=== PATIENT | male | born 1960 | race Caucasian/White ===

== ENCOUNTER → 2016-12-14 | Outpatient (CLI) | payer OTHER ==
[~2016-12-14] MED LIST: ATOR10TA82 PO; CIPR-255 PO; HYDR-5688 PO
[2016-12-14 16:28] LABS: LYME DISEASE AB IGG NEG (NEG)
[2016-12-14 16:29] LABS: LYME DISEASE AB IGM NEG (NEG)
== END | disposition home or self-care (01) ==
LOC: C.LAB1850 11:06
PROVIDERS: ATTEND Physician Assistant
DX: T14.8 Other injury of unspecified body region (principal); W57.XXXA Bitten or stung by nonvenomous insect and other nonvenomous arthropods, initial encounter

== ENCOUNTER 2020-06-27 01:52 | Observation (INO) ==
[2020-06-27] MEDS ORDERED: ONDANSETRON INJ 2 MG/ML 2 ML VIAL IV STA (02:11)
[2020-06-27] MEDS ORDERED: HYDROmorphone INJ 1 MG/ML SYRINGE IV STA (02:11)
[2020-06-27] MEDS ORDERED: KETOROLAC TROMETHAMINE 15 MG/ML VIAL IV STA (02:11)
[2020-06-27] MEDS ORDERED: SODIUM CHLORIDE 0.9% 1000ML 1,000 ML IV SCH ×2 (02:15→04:11)
[2020-06-27 02:36] LABS: Basophils # (auto) 0.01 K/uL (0-0.2); Basophils % (auto) 0.1 %; Eosinophils # (auto) 0.04 K/uL (0-0.5); Eosinophils % (auto) 0.4 %; Hematocrit (blood only) 41.8 % (42-52); Hemoglobin 14.5 g/dL (14.0-18.0); Immature Granulocytes # (auto) 0.01 K/uL (0.00-0.02); Immature Granulocytes % (auto) 0.1 %; Lymphocytes # (auto) 0.53 K/uL (1.2-3.4); Lymphocytes % (auto) 5.7 %; Mean Corpuscular Hemoglobin 30.8 pg (25-34); Mean Corpuscular Hgb Conc 34.7 g/dL (32-36); Mean Corpuscular Volume 88.7 fL (80-100); Mean Platelet Volume 10.9 fL (7.4-10.4); Monocytes # (auto) 0.82 K/uL (0.11-0.59); Monocytes % (auto) 8.8 %; Neutrophils # (auto) 7.91 K/uL (1.4-6.5); Neutrophils % (auto) 84.9 %; Platelet Count 136 K/uL (130-400); RDW Coefficient of Variation 12.4 % (11.5-14.5); RDW Standard Deviation 39.9 fL (36.4-46.3); Red Blood Count 4.71 M/uL (4.7-6.1); White Blood Count 9.32 K/uL (4.8-10.8)
[2020-06-27 02:54] LABS: Albumin Level 3.7 gm/dl (3.4-5.0); BUN Creatinine Ratio 17.6 (10-20); Calcium 8.7 mg/dl (8.5-10.1); Creatinine Clr Calc Pharmacy 63.5 ml/min; Est GFR (African American) 65.8; Est GFR (Non-African American) 56.8
[2020-06-27 02:57] LABS: Albumin Globulin Ratio 1.2 (0.9-2); Bilirubin,Total 0.8 mg/dl (0.2-1); Globulin 3.1 gm/dl (2.5-4.0); Total Protein 6.8 gm/dl (6.4-8.2)
--- NOTE | 2020-06-27 03:00 | History & Physical Report ---
Date of Service June 27, 2020 Assessment & Plan (1) Hydronephrosis of left kidney: Hydronephrosis of left kidney/calculus of distal left ureter- Readmit patient due to intolerable pain. NPO except meds Tamsulosin 0.4 mg p.o. at bedtime NSS at 80 mils per hour Acetaminophen 650 mg p.o. every 6 hours as needed mild pain or temperature Acetaminophen-codeine 1 p.o. 3 times daily as needed moderate pain Dilaudid 0.5 mg IV every 3 hours as needed for severe pain Follow urine culture and sensitivity Ceftriaxone 1 g IV daily Zofran 4 mg IV every 6 hours as needed Famotidine 20 mg IV every 12 hours Reconsult urology Present on Admission?: Yes (2) Calculus of distal left ureter: See above Present on Admission?: Yes (3) Pure hypercholesterolemia: Hold atorvastatin Present on Admission?: Yes History of Present Illness Chief Complaint: Patient presents to the emergency department with intolerable left flank and left lower quadrant pain after being discharged from the hospital earlier in the day today. Primary Care Provider: Radha Amaya MD The patient is a 59-year-old male with a past medical history including pure hypercholesterolemia, previous kidney stones, and was just admitted on 06/26/2020 with a distal left ureteral calculus and moderate left hydronephrosis. He was given the option of surgical intervention versus a trial of passage, and he chose a trial of passage at home, and was discharged on 06/26/2020. Patient reports that when he went home, the pain was initially acceptable, and then became intolerable, and represents to the ED this evening for reassessment. Allergies Allergy/AdvReac Type Severity Reaction Status Date / Time No Known Allergies Allergy Verified 06/27/20 02:38 Home Medications Home Medications Medication Instructions Recorded Confirmed Type naproxen sodium 220 mg capsule 220 mg PO BID PRN 04/03/20 06/27/20 History atorvastatin 10 mg tablet 10 mg PO DAILY #90 tab 05/12/20 06/27/20 Rx acetaminophen-codeine 1 tab PO TID PRN #14 tab 06/26/20 06/27/20 Rx tamsulosin 0.4 mg PO HS #14 cap 06/26/20 06/27/20 Rx Past Med/Surg History Medical History (Updated 10/16/20 @ 00:08 by Xiomara Santiago MD) Health care maintenance Kidney stone (02/23/13) Pure hypercholesterolemia (02/21/13) Surgical History History of lithotripsy Family History Father Coronary heart disease Myocardial infarction Grandfather Diabetes Family/Other ASCVD (arteriosclerotic cardiovascular disease) Mother Colorectal cancer Denies family history of Ovarian cancer Prostate cancer Breast cancer Social History Smoking Status: Never smoker Second Hand Exposure: No; Hx Alcohol Use: Yes Alcohol type: beer Hx Substance Use: No Preferred Language: Azeri Communication Ability: Effective Roll Weigher Required: No Beliefs That Will Affect Care: None marital status: Current Living Situation: Spouse current occupational status: employed Feels Safe at Home: Yes Dental Care, Regularly: Yes Physical Activity Frequency: Daily Seatbelt Use: always Sunscreen Use: No Assistive Devices: None Review of Systems Review of Systems: The patient denies chest pain, palpitations, shortness of breath, dyspnea on exertion, cough, lower extremity swelling, sore throat, fevers, chills, sweats, vomiting, diarrhea , constipation, blood in urine or stool, dysuria, urinary frequency or urgency, lightheadedness, dizziness, headache, memory loss, loss of consciousness, rash, abnormal bruising or bleeding, imbalance, focal or generalized weakness, numbness or tingling in arms or legs, generalized arthralgias or myalgias, neck pain, or night sweats. The review of systems is otherwise negative other than for that already noted above, and at least 10 systems have been reviewed. Physical Exam Physical Exam: The patient is awake, alert and oriented 3, well developed and well nourished, normocephalic and atraumatic, lying in bed and in no acute distress. HEENT--PERRL, EOMI, mucous membranes and oropharynx dry. Neck--supple. No JVD. No bruits. Thyroid normal, trachea midline, no adenopathy. Heart--normal S1 and S2. No murmurs, rubs or gallops. Lungs--clear bilaterally, no respiratory distress, no accessory muscle use. Abdomen--normal bowel sounds and soft. Tender left lower quadrant and left flank. Nondistended. Extremities--no cyanosis or clubbing. No edema. Dermatologic--normal skin turgor, normal color, no abnormal lymph nodes, no rash. Neurologic--cranial nerves II through XII grossly intact. Rheumatologic--normal range of motion. Psychiatric--normal affect. Results & Data Results & Data ([facility]) Vital Signs (Past 12 Hours) Vital Signs Temp Pulse Resp BP Pulse Ox 06/27/20 01:57 98.2 F 83 18 166/90 H 96 Code Status & VTE Plan Code Status Full code VTE Prophylaxis Plan VTE Prophylaxis will be ordered: Yes PG Care Time/CCT Total # of Minutes Spent Total Time Spent with Patient: Total time spent is greater than 50% in coordination of care (as documented) at patient's floor/unit and/or counseling patient: Coding Level of Care Code 38718 OBS Care - Level 3 Diagnoses Hydronephrosis of left kidney N13.30 Calculus of distal left ureter N20.1 Pure hypercholesterolemia E78.00
--- NOTE | 2020-06-27 03:30 | Emergency Department Note ---
History of Present Illness General Chief complaint: Kidney Stone Stated complaint: KIDNEY STONE Source: patient and RN notes reviewed Mode of arrival: ambulatory Limitations: no limitations History of Present Illness Provider complaint: Left flank pain Maximum Pain Intensity: 4 This patient is a 59-year-old male who presents emergency department with complaints of left flank pain. The patient states he was evaluated in the emergency department last night and observed by the hospitalist team for intractable left-sided pain. After receiving the IV Dilaudid, IV Toradol and Flomax, the patient's pain did resolve however on KUB the stone was still present. After discussing the situation with urology, the patient decided he wanted to try and pass the stone which is at the left UVJ. He was discharged with Tylenol 3. He states he has been nauseated most of the day which he attributes to this medication. He does not feel as though he has adequate pain control. Patient denies any fevers or pain with urination. Home Medications Home Medications Medication Instructions Recorded Confirmed Type naproxen sodium 220 mg capsule 220 mg PO BID PRN 04/03/20 06/27/20 History atorvastatin 10 mg tablet 10 mg PO DAILY #90 tab 05/12/20 06/27/20 Rx acetaminophen-codeine 1 tab PO TID PRN #14 tab 06/26/20 06/27/20 Rx tamsulosin 0.4 mg PO HS #14 cap 06/26/20 06/27/20 Rx Allergies Allergy/AdvReac Type Severity Reaction Status Date / Time No Known Allergies Allergy Verified 06/27/20 02:38 Past Med/Surg History Medical History Health care maintenance Kidney stone (02/23/13) Pure hypercholesterolemia (02/21/13) Surgical History History of lithotripsy Family History Father Coronary heart disease Myocardial infarction Grandfather Diabetes Family/Other ASCVD (arteriosclerotic cardiovascular disease) Mother Colorectal cancer Denies family history of Ovarian cancer Prostate cancer Breast cancer Social History Smoking Status: Never smoker Second Hand Exposure: No; Hx Alcohol Use: Yes Alcohol type: beer Hx Substance Use: No Preferred Language: Lithuanian Communication Ability: Effective Perfect Binder Operator Required: No Beliefs That Will Affect Care: None marital status: Current Living Situation: Spouse Current Living Situation Comment: current occupational status: employed Feels Safe at Home: Yes Dental Care, Regularly: Yes Physical Activity Frequency: Daily Seatbelt Use: always Sunscreen Use: No Assistive Devices: None Review of Systems See HPI for pertinent positives & negatives. and A total of 10 systems reviewed and were otherwise negative Physical Exam Vital Signs Vital Signs - 24 hr 06/27/20 01:57 Temperature 36.8 C Temperature Source Oral Pulse Rate 83 Respiratory Rate 18 Respiratory Depth Normal Blood Pressure 166/90 H Blood Pressure Mean 115 Pulse Oximetry 96 Oxygen Delivery Method Room Air Sepsis Recent Fever Within 48 Hours No Sepsis New/Unexplained Change in Mental Status N/A Sepsis Action Taken by Nursing No Action Required Vital signs reviewed. General: Well-appearing 59 yo male, in no significant distress. HEENT: No scleral icterus, PERRLA, neck supple. Cardiovascular: Regular rate and rhythm, no extra sounds. Pulmonary: Clear to auscultation bilaterally, normal work of breathing. Abdomen: Soft, mild left abdominal discomfort to palpation, nondistended, positive bowel sounds. Musculoskeletal: Atraumatic, no peripheral edema. Mild to moderate left CVA tenderness Neurologic: Patient awake alert and oriented x 3 Skin: Warm, dry, no rash Course Administered Medications Discontinued Medications Hydromorphone HCl (Hydromorphone Inj 1 Mg/Ml Syringe) 1 mg IV NOW STA Stop: 06/27/20 02:12 Last Admin: 06/27/20 02:30 Dose: 1 mg Documented by: [id number] Sodium Chloride (Nss 1000ml) 1,000 mls @ 999 mls/hr IV .Q1H1M ALEXIS Stop: 06/27/20 03:15 Last Infusion: 06/27/20 03:46 Dose: 0 mls/hr Documented by: [id number] Admin: 06/27/20 02:29 Dose: 999 mls/hr Documented by: [id number] Ketorolac Tromethamine (Ketorolac Tromethamine 15 Mg/Ml Vial) 15 mg IV NOW STA Stop: 06/27/20 02:12 Last Admin: 06/27/20 02:30 Dose: 15 mg Documented by: [id number] Ondansetron HCl (Ondansetron Inj 2 Mg/Ml 2 Ml Vial) 4 mg IV NOW STA Stop: 06/27/20 02:12 Last Admin: 06/27/20 02:30 Dose: 4 mg Documented by: [id number] Medical Decision Making Differential Diagnosis DDx: Renal colic, UTI, appendicitis, diverticulitis, mesenteric ischemia, aortic pathology, infections, inflammatory bowel disease, PUD, biliary pathology, as well as other pathologies. Medical Records Attestation: I reviewed the patient's medical records. Home Medications Current Medication List: was personally reviewed by me Laboratory Data Attestation: I reviewed the patient's lab results. Result diagrams: 06/27/20 02:24 06/27/20 02:24 Lab Results 06/27/20 06/27/20 Range/Units 02:24 02:24 WBC 9.32 (4.8-10.8) K/uL RBC 4.71 (4.7-6.1) M/uL Hgb 14.5 (14.0-18.0) g/dL Hct 41.8 L (42-52) % MCV 88.7 (80-100) fL MCH 30.8 (25-34) pg MCHC 34.7 (32-36) g/dL RDW Std Deviation 39.9 (36.4-46.3) fL RDW Coeff of Gurpreet 12.4 (11.5-14.5) % Plt Count 136 (130-400) K/uL MPV 10.9 H (7.4-10.4) fL Immature Gran % (Auto) 0.1 % Neut % (Auto) 84.9 % Lymph % (Auto) 5.7 % Stokes % (Auto) 8.8 % Eos % (Auto) 0.4 % Baso % (Auto) 0.1 % Neut # (Auto) 7.91 H (1.4-6.5) K/uL Lymph # (Auto) 0.53 L (1.2-3.4) K/uL Stokes # (Auto) 0.82 H (0.11-0.59) K/uL Eos # (Auto) 0.04 (0-0.5) K/uL Baso # (Auto) 0.01 (0-0.2) K/uL Immature Gran # (Auto) 0.01 (0.00-0.02) K/uL Sodium 139 (136-145) mmol/L Potassium 4.0 (3.5-5.1) mmol/L Chloride 107 (98-107) mmol/L Carbon Dioxide 25 (21-32) mmol/L Anion Gap 7.0 (3-11) BUN 24 H (7-18) mg/dl Creatinine 1.34 (0.6-1.4) mg/dl Est Cr Clr Drug Dosing 63.5 ml/min Est GFR ( Amer) 65.8 Est GFR (Non-Af Amer) 56.8 BUN/Creatinine Ratio 17.6 (10-20) Glucose 135 H (70-99) mg/dl Calcium 8.7 (8.5-10.1) mg/dl Total Bilirubin 0.8 (0.2-1) mg/dl AST 23 (15-37) U/L ALT 21 (12-78) U/L Alkaline Phosphatase 47 (45-117) U/L Total Protein 6.8 (6.4-8.2) gm/dl Albumin 3.7 (3.4-5.0) gm/dl Globulin 3.1 (2.5-4.0) gm/dl Albumin/Globulin Ratio 1.2 (0.9-2) Lipase 109 (73-393) U/L Blood Pressure Blood Pressure Findings: Elevated blood pressure Blood Pressure Disposition: elevated BP felt to be situational MDM Narrative This patient was evaluated and appeared to be in some discomfort. Patient was sitting up at the bedside and clutching his abdomen. Patient is noted to be afebrile. IV access was obtained and laboratory work was drawn. An order for cardiac monitoring was placed and the patient is noted to be in a normal sinus rhythm at 65 bpm. He was hydrated with normal saline solution, given IV Dilaudid and IV Zofran for his discomfort. He was given 15 mg of IV Toradol. Patient's laboratory work is fairly reassuring with a normal WBC of 9.32 and a creatinine of 1.34, similar to yesterday. Patient has not produced a urine sample at this time. The hospitalist, Dr. Clifford was consulted for further management. Patient was made aware of the plan and agreed. Impression & Plan Calculus of distal left ureter, Renal colic on left side Discharge Plan Visit Data Chief Complaint: Kidney Stone Stated Complaint: KIDNEY STONE ED Provider: Xiomara Santiago Discharge Problem: Calculus of distal left ureter, Renal colic on left side Patient Disposition: Admitted As Inpatient Discharge Instructions Interventions: ED Discharge Assessment Last Done: 06/27/20 03:49
[2020-06-27 04:05] LABS: Appearance Urine Clear (Clear); Bilirubin Urine Negative (Negative); Blood Urine Negative (Negative); Color Urine Yellow; Glucose Urine UA Negative (Negative); Ketones Urine Trace (Negative); Leukocyte Esterase Urine Negative (Negative); Nitrite Urine Negative (Negative); Protein Urine Negative (Negative); Specific Gravity Urine 1.022 (1.000-1.030); Urobilinogen Urine Negative (Negative)
[2020-06-27] MEDS ORDERED: HYDROmorphone INJ 0.5 MG/0.5 ML SYR IV PRN (04:11)
[2020-06-27] MEDS ORDERED: ONDANSETRON INJ 2 MG/ML 2 ML VIAL IV PRN (04:11)
[2020-06-27] MEDS ORDERED: ACETAMINOPHEN 325 MG TAB PO PRN (04:11)
[2020-06-27] MEDS ORDERED: ACETAMINOPHEN W/CODEINE #3 1 TAB PO PRN (04:30)
[2020-06-27] MEDS ORDERED: cefTRIAXone SODIUM 2,000 MG in DEXTROSE 5% 50 ML IV SCH (06:00)
[2020-06-27] MEDS ORDERED: ATORVASTATIN 10 MG TAB PO SCH (09:00)
--- NOTE | 2020-06-27 09:01 | XRay Report ---
KUB CLINICAL HISTORY: left UVJ stone COMPARISON STUDY: CT of the abdomen and pelvis June 25, 2020. KUB June 26, 2020. FINDINGS: Punctate left renal calculus is noted. The small right renal calculi shown on CT of June 25, 2020 are not visualized on this exam due to technique. The distal left ureteral calculus shown o n prior CT and KUB is not identified. This suggests interval passage. IMPRESSION: Nonvisualization of the distal left ureteral calculus shown on prior CT and KUB which busby ggests interval passage. ACT 112: Negative or not required by law. Electronically signed by: Jorden Jeffries M.D. 06/27/2020 9:00 AM
--- NOTE | 2020-06-27 09:20 | Urology Consultation ---
Date of Consultation June 27, 2020 Assessment & Plan (1) Calculus of distal left ureter: (2) Hydronephrosis of left kidney: 59 yo M admitted for left UVJ stone with moderate hydronephrosis. - Afebrile, nontoxic, creatinine and WBC stable - Pt uncomfortable this AM, failed outpatient trial of passage - KUB ordered this morning - left ureteral calculus shown on prior CT and KUB is not visualized - Case reviewed with Dr. Vyas - Keep NPO, strain urine, possible intervention today - Patient's RN contacted our service that patient passed stone later this AM - Will send stone for analysis - order placed - Okay to discharge to home from perspective if feeling well - Plan to follow-up with our service outpatient History of Present Illness Reason for Consultation: Left UVJ stone, moderate hydronephrosis Requesting Physician: Dr. Trevino Attending Physician: Steve Reynolds, DO History of Present Illness 59 yo M admitted for left UVJ stone with moderate hydronephrosis. Patient known to our service for nephrolithiasis. He was evaluated yesterday for left UVJ stone. He was feeling well yesterday and was discharged to home for trial of passage. He presented to [facility] again on 06/27/20 for intractable left flank pain and admitted for pain management and further evaluation. He was afebrile. Lab work on arrival: creatinine 1.34, WBC 9.32, Hgb 14.5. UA was not suggestive of infection and negative for blood. No urine culture sent. No additional imaging done in ED. Pt examined at bedside this AM. Awake and sitting on the side of bed. Denies stone passage. Reports persistent left flank and low back pain. He had Dilaudid @0720 this AM, moderate relief but feels it is wearing off. Some nausea, no vomiting since admission. Voiding spontaneously without difficulty. No dysuria or hematuria. No fever or chills. No additional concerns at this time. Allergies Allergy/AdvReac Type Severity Reaction Status Date / Time No Known Allergies Allergy Verified 06/27/20 02:38 Home Medications Home Medications Medication Instructions Recorded Confirmed Type naproxen sodium 220 mg capsule 220 mg PO BID PRN 04/03/20 06/27/20 History atorvastatin 10 mg tablet 10 mg PO DAILY #90 tab 05/12/20 06/27/20 Rx acetaminophen-codeine 1 tab PO TID PRN #14 tab 06/26/20 06/27/20 Rx tamsulosin 0.4 mg PO HS #14 cap 06/26/20 06/27/20 Rx Patient History Medical History Health care maintenance Kidney stone (02/23/13) Pure hypercholesterolemia (02/21/13) Surgical History History of lithotripsy Family History Father Coronary heart disease Myocardial infarction Grandfather Diabetes Family/Other ASCVD (arteriosclerotic cardiovascular disease) Mother Colorectal cancer Denies family history of Ovarian cancer Prostate cancer Breast cancer Social History Smoking Status: Never smoker Second Hand Exposure: No; Hx Alcohol Use: Yes Alcohol type: beer Hx Substance Use: No Preferred Language: Barbadian Communication Ability: Effective Bone Cooking Operator Required: No Beliefs That Will Affect Care: None marital status: Current Living Situation: Spouse Current Living Situation Comment: current occupational status: employed Feels Safe at Home: Yes Dental Care, Regularly: Yes Physical Activity Frequency: Daily Seatbelt Use: always Sunscreen Use: No Assistive Devices: Glasses Review of Systems Constitutional: as per Subjective / HPI Gastrointestinal: as per Subjective / HPI Genitourinary: + as per Subjective / HPI Physical Exam Constitutional: well developed and well nourished Appears uncomfortable, but no acute distress, nontoxic Respiratory: normal respiratory effort and able to speak in complete sentences; no respiratory distress and no labored breathing Cardiovascular: Extremities: no pedal edema Gastrointestinal (Abdomen): Inspection/Auscultation: abdomen normal to inspection; abdomen not distended Percussion/Palpation: abdomen soft; abdomen nontender Musculoskeletal: Head/Neck/Chest: normocephalic and head atraumatic Extremities: extremities normal to inspection Skin: warm and dry, no rashes to exposed skin Neurologic: moves all extremities and awake Psychiatric: A+Ox3, euthymic affect Genitourinary: no CVA tenderness Results & Data ([facility]) Vital Signs (Past 12 Hours) Vital Signs Temp Pulse Pulse Resp BP BP BP 10/16/20 07:29 36.7 C 67 16 157/87 H 06/27/20 04:13 36.9 C 65 18 160/86 H 06/27/20 03:48 85 18 165/93 H 06/27/20 01:57 36.8 C 83 18 166/90 H Pulse Ox 06/27/20 07:29 91 06/27/20 04:13 95 06/27/20 03:48 95 06/27/20 01:57 96 PG Care Time/CCT Total # of Minutes Spent Total Time Spent with Patient: Total time spent is greater than 50% in coordination of care (as documented) at patient's floor/unit and/or counseling patient: Coding Level of Care Code 36333 Inpt Consult Level 4 Diagnoses Calculus of distal left ureter N20.1 Hydronephrosis of left kidney N13.30
--- NOTE | 2020-06-27 12:04 | Discharge Summary ---
Date of Service June 27, 2020 Admission HPI Per Admitting Provider The patient is a 59-year-old male with a past medical history including pure hypercholesterolemia, previous kidney stones, and was just admitted on 06/26/2020 with a distal left ureteral calculus and moderate left hyd ronephrosis. He was given the option of surgical intervention versus a trial of passage, and he chose a trial of passage at home, and was discharged on 06/26/2020. Patient reports that when he went home, the pain was initially acceptable, and then became intolerable, and represents to the ED this evening for reassessment. Principal Diagnosis Kidney stone Discharge Exam Constitutional WD/WN, vitals as above Respiratory normal respiratory effort, lungs clear to auscultation Cardiovascular RRR, no murmur, no edema Gastrointestinal (Abdomen) normal bowel sounds, soft, nontender, no hepatosplenomegaly Musculoskeletal no cyanosis or clubbing, extremities motor strength 5/5 Skin no rashes, warm and dry Neurologic moves all extremities and awake Discharge Data Allergies Allergy/AdvReac Type Severity Reaction Status Date / Time No Known Allergies Allergy Verified 06/27/20 02:38 Consultations 06/27/20 02:24 ED Decision to Admit Stat 06/27/20 04:11 Consult Urology Routine Hospital Course (1) Hydronephrosis of left kidney: Hydronephrosis of left kidney/calculus of distal left ureter- Readmitted a night after discharge due to intolerable pain. Passed stone and no stone observed in the ureter on KUB. Pain resolved. (2) Calculus of distal left ureter: See above (3) Pure hypercholesterolemia: Hold atorvastatin (4) Prediabetes: A1c added to morning labs due to hyperglycemia on inpatient lab work but did not result until after patient had left. A1c was 5.7%. Will need to follow up with primary care provider concerning lifestyle counseling Total Time Total Time Spent Total Time Spent (In Minutes): less than 30 minutes Discharge Plan Discharge Items Patient Disposition: Home - Self-Care Reason For Visit: L UVJ STONE/MODERATE LEFT HYDRONEPHROSIS Discharge Diagnosis: Kidney stone Activity: Resume your previous activity Non-emergency contact: Primary Care Provider Call non-emergency contact if: you have any medication questions Follow-up/Referrals: Radha Whitehead MD [Primary Care Provider] - 07/01/20 10:30 am (WITH KAYLEY CHOWDARY) Diet: Regular Addtl Attending Provider Instructions: You were admitted for a kidney stone which you reported you passed with resolution of your pain. The stone is also not visualized on your Xray this m shelly. Urology will contact you for a six month follow up appointment. Your blood sugar was a bit elevated while you were here. I do not see a recent HbA1c in your chart (measure of 3 months average blood sugar) so an HbA1c was added to your morning labs and will result in the next day or two. Please follow up on this with your primary care provider Pending Studies at Discharge: No Stand-Alone Forms: [facility] Sm[facility] Cessation Medications and DC Order Prescriptions: Continued atorvastatin 10 mg tablet 10 mg PO DAILY Qty: 90 RF: 3 naproxen sodium [Aleve] 220 mg capsule 220 mg PO BID PRN (Reason: Pain) RF: 0 Discontinued tamsulosin 0.4 mg capsule 0.4 mg PO HS Qty: 14 RF: 0 acetaminophen-codeine 300-15 mg tablet 1 tab PO TID PRN (Reason: pain) Qty: 14 RF: 0 Discharge Orders: Discharge Order (Routine); Ordered 06/27/20 Ordered By: Zoë Sharma/Other Patient Handouts: Preventing Kidney Stones Admission Data Admit Date/Time: 06/27/20 02:59 Attending Provider: Steve Reynolds Admit Provider: Brice Trevino Primary Care Provider: Radha Whitehead V. Other Providers: Brice Trevino ; Chalo Cheung Other Interventions: Discharge Summary Assessment (RN) Last Done: 06/27/20 12:33 Supervising Physician Co-Signing Physician Notes Patient seen and examined on the day of discharge. I agree with the discharge summary by Zoë ZALDIVAR. I have reviewed the chart including labs, imaging and plans for discharge. - Left ureteral stone, patient passed stone spontaneously, can follow up with urology Coding Level of Care Code D/C Day Management <30 mins Diagnoses Hydronephrosis of left kidney N13.30 Calculus of distal left ureter N20.1 Pure hypercholesterolemia E78.00 Prediabetes R73.03
[2020-06-27 12:47] LABS: Estimated Average Glucose 117 mg/dl; Hemoglobin A1C 5.7 % (4.5-5.6)
[2020-06-27] MEDS ORDERED: TAMSULOSIN HCL 0.4 MG CAP PO SCH (21:00)
[2020-07-02 00:01] LABS: Component 2 DNR; Source KIDNEY
== END 2020-06-27 12:53 | disposition home or self-care (01) ==
LOC: 3N 01:52 → ED 01:52 → SUATTDRO 02:59 → 3N 03:49